=== PATIENT | female | born 1930 | race Caucasian/White ===

== ENCOUNTER → 2017-07-02 | Outpatient (CLI) | payer MEDICARE, BC ==
--- NOTE | 2017-07-02 15:05 | BD ---
EXAMINATION TYPE: MG DEXA axial skeleton. DATE OF EXAM: 07/02/2017 COMPARISON: DEXA bone scan report July 08, 2009 CLINICAL HISTORY: Postmenopausal female Height: 5 FT Weight: 153 FRAX RISK QUESTIONS: Alcohol (3 or more units per day): NO Family History (Parent hip fracture): NO Glucocorticoids (More than 3mos): NO (Ex: prednisone, prednisolone, methylprednisolone, dexamethasone, and hydrocortisone). History of Fracture in Adulthood: NO Secondary Osteoporosis: 1. Type 1 Diabetes: NO 2. Hyperthyroidism: NO 3. Menopause before 45: YES 4. Malnutrition: NO 5. Chronic liver disease: NO Rheumatoid Arthritis: NO-NO Current Tobacco Use: RISK FACTORS HISTORY OF: Active: YES Postmenopausal woman: TOTAL HYST AGE 42 MEDICATIONS: Additional Medications: SIMVASTATIN,ATENOLOL, LISINOPRIL, MESALAMINE, LEVOTHYROXINE ASPIRIN Additional History: HAS BEEN ON LEVOTHYROXINE FOR 10-12 YEARS EXAM MEASUREMENTS: Bone mineral densitometry was performed using the [employer] Interactive System. Bone mineral density as measured about the Lumbar spine is: ----- L1-L4(G/cm2): 0.938 T Score Values are as follows: ----- L2: -2.5 ----- L3: -1.1 ----- L4: -2.0 ----- L1-L4: -2.0 Bone mineral density has: Increased 1.7% since study of: 2008 Bone mineral density about the R hip (g/cm2): 0.667 Bone mineral density about the L hip (g/cm2): 0.716 T Score values are as follows: -----R Neck: -2.7 -----L Neck: -2.3 -----R Total: -2.3 -----L Total: -1.8 Bone mineral density has: Decreased -9.0 % since study of: 2008 IMPRESSION: Osteoporosis (T Score less than -2.5) as noted by T Score values at femoral neck level in the right h ip. There is increased fracture risk and therapy is usually indicated based on age. Re-Screen 1-2 yea rs. NOTE: T-SCORE=SD OF THE YOUNG ADULT MEAN.
[2017-07-02 15:09] LABS: Blood Urea Nitrogen 7 mg/dL (7-17); Non-African American GFR(MDRD) >60 (>60 ml/min/1.73 sqM)
--- NOTE | 2017-07-02 15:54 | CT ---
EXAMINATION TYPE: CT chest w con DATE OF EXAM: 07/02/2017 COMPARISON: NONE HISTORY: Patient complains of left side chest pain. CT DLP: 456 mGycm Automated exposure control for dose reduction was used. CONTRAST: CT scan of the chest is performed with IV Contrast, patient injected with 100 mL of Omnipaque 300. FINDINGS: LUNGS: The lungs are grossly clear, there is no concerning parenchymal mass or nodule identified. T here is no pleural effusion or pneumothorax seen. The tracheobronchial tree is patent. MEDIASTINUM: There is subcarinal and azygoesophageal adenopathy measuring 3.8 by 1.7 cm. No additiona l mediastinal or hilar adenopathy seen. There is thickening of the esophagus distending from the thor acic inlet to the level of the tracheal bifurcation. Consider direct visualization. No pericardial ef fusion is seen. Thoracic aorta is of normal caliber. The heart is enlarged. UPPER ABDOMEN: Mild hepatic steatosis. Cholecystectomy clips are in place. OTHER: No additional significant abnormality is seen. IMPRESSION: 1. Nonspecific Large mediastinal adenopathy as discussed. Consider transbronchial biopsy if felt clin ically indicated. 2. Thickening of the esophagus from the thoracic inlet through the tracheal bifurcation Above.
== END | disposition home or self-care (01) ==
LOC: RADBDWWP 14:03
PROVIDERS: ATTEND Internal Medicine
DX: M81.0 Age-related osteoporosis without current pathological fracture (principal); R59.0 Localized enlarged lymph nodes
CPT/HCPCS: 82565; 84520; 77080; 71260; 36415; Q9967

== ENCOUNTER 2018-11-24 11:41 | Emergency (ER) | payer MEDICARE, BC ==
[2018-11-24] MEDS ORDERED: NITROGLYCERIN OINT 1 INCH/GM PACKET TOPICAL STA (12:05)
[2018-11-24] MEDS ORDERED: KETOROLAC 60 MG/2 ML VIAL IVP STA (12:05)
[2018-11-24] MEDS ORDERED: SODIUM CHLORIDE 0.9% 500 ML 500 ML IV STA (12:05)
[2018-11-24] MEDS ORDERED: DIAZEPAM 5 MG/ML 2 ML INJ IVP STA (12:06)
--- NOTE | 2018-11-24 12:31 | ED ---
General Adult HPI - General Chief complaint: Chest Pain Stated complaint: Shoulder pain,SOB Time Seen by Provider: 11/24/18 11:45 Source: patient, RN notes reviewed Mode of arrival: ambulatory - History of Present Illness Initial comments: This is an 88-year-old female presents emergency Department complaining of posterior left shoulder pain. Patient states symptoms started yesterday have been constant ever since. Patient states the pain feels like a spasm in nature. Patient states the pain is worse with palpation patient states the pain is worse with movement of the left arm. Patient denies any anterior chest pain patient denies any difficulty breathing or shortness of breath. Patient denies any diaphoresis. Patient denies any nausea vomiting diarrhea per patient denies abdominal pain. Patient denies lightheadedness dizziness or near syncopal episode. Patient denies any numbness or weakness. Patient denies any swelling to the legs or calf tenderness. Patient states she does not have any diabetes but she has high blood pressure she thinks she has high cholesterol. - Related Data Home Medications Medication Instructions Recorded Confirmed Aspirin 325 mg PO DAILY PRN 11/24/18 11/24/18 Aspirin EC [Ecotrin Low Dose] 81 mg PO HS 11/24/18 11/24/18 Levothyroxine Sodium [Synthroid] 75 mcg PO DAILY 11/24/18 11/24/18 Lisinopril [Zestril] 20 mg PO BID 11/24/18 11/24/18 Memantine [Namenda] 5 mg PO DAILY 11/24/18 11/24/18 Mesalamine 800 mg PO TID 11/24/18 11/24/18 Metoprolol Tartrate [Lopressor] 75 mg PO BID 11/24/18 11/24/18 Simvastatin [Zocor] 20 mg PO HS 11/24/18 11/24/18 amLODIPine [Norvasc] 5 mg PO BID 11/24/18 11/24/18 Previous Rx's Medication Instructions Recorded Cyclobenzaprine [Flexeril] 5 mg PO TID #20 tab 11/24/18 Ibuprofen [Motrin] 600 mg PO Q6HR PRN #20 tab 11/24/18 Allergies Allergy/AdvReac Type Severity Reaction Status Date / Time cefdinir Allergy Unknown Verified 11/24/18 12:31 nitrofurantoin Allergy Unknown Verified 02/12/19 12:31 [From Macrodantin] pravastatin [From Pravachol] Allergy Unknown Verified 11/24/18 12:31 Sulfa (Sulfonamide Allergy Unknown Verified 11/24/18 12:31 Antibiotics) Review of Systems ROS Statement: Those systems with pertinent positive or pertinent negative responses have been documented in the HPI. ROS Other: All systems not noted in ROS Statement are negative. Past Medical History Past Medical History: Hyperlipidemia, Hypertension Additional Past Medical History / Comment(s): [place] History of Any Multi-Drug Resistant Organisms: None Reported Past Surgical History: No Surgical Hx Reported Past Psychological History: No Psychological Hx Reported Smoking Status: Former smoker Past Alcohol Use History: None Reported Past Drug Use History: None Reported General Exam - General Exam Comments Initial Comments: GENERAL: Patient is well-developed and well-nourished. Patient is nontoxic and well- hydrated and is in mild distress. ENT: Neck is soft and supple. No significant lymphadenopathy is noted. Oropharynx is clear. Moist mucous membranes. Neck has full range of motion without eliciting any pain. EYES: The sclera were anicteric and conjunctiva were pink and moist. Extraocular movements were intact and pupils were equal round and reactive to light. Eyelids were unremarkable. PULMONARY: Unlabored respirations. Good breath sounds bilaterally. No audible rales rhonchi or wheezing was noted. CARDIOVASCULAR: There is a regular rate and rhythm without any murmurs gallops or rubs. ABDOMEN: Soft and nontender with normal bowel sounds. No palpable organomegaly was noted. There is no palpable pulsatile mass. SKIN: Skin is clear with no lesions or rashes and otherwise unremarkable. NEUROLOGIC: Patient is alert and oriented x3. Cranial nerves II through XII are grossly intact. Motor and sensory are also intact. Normal speech, volume and content. Symmetrical smile. Cerebellar exam grossly intact. MUSCULOSKELETAL: Normal extremities with adequate strength and full range of motion. No lower extremity swelling or edema. No calf tenderness. LYMPHATICS: No significant lymphadenopathy is noted PSYCHIATRIC: Normal psychiatric evaluation Course Vital Signs 11/24/18 11/24/18 11/24/18 11:45 12:21 12:30 Temperature 97.7 F Pulse Rate 125 H 87 Pulse Rate [ 106 H [employer] ] Respiratory 26 H 17 Rate Blood Pressure 153/79 146/64 O2 Sat by Pulse 100 100 Oximetry 11/24/18 12:41 Temperature Pulse Rate 100 Pulse Rate [ [employer] ] Respiratory 18 Rate Blood Pressure 146/64 O2 Sat by Pulse 100 Oximetry Medical Decision Making - Medical Decision Making EKG shows sinus tachycardia at 102 bpm CA interval is 170 QRS is 66 QT interval 346 QTC is 450. Patient's EKG shows no ST segment elevation however there is some slight ST segment depression in leads V4 V5 and V6. Patient received Toradol and Valium and little morphine and was feeling considerably better. Patient states movement of the arm still exacerbated the pain. - Lab Data Result diagrams: 11/24/18 12:11/24/18 12:09 Lab Results 11/24/18 11/24/18 11/24/18 Range/Units 12: 12: 12: WBC 7.7 (3.8-10.6) k/uL RBC 4.60 (3.80-5.40) m/uL Hgb 14.7 (11.4-16.0) gm/dL Hct 43.0 (34.0-46.0) % MCV 93.5 (80.0-100.0) fL MCH 31.9 (25.0-35.0) pg MCHC 34.1 (31.0-37.0) g/dL RDW 12.8 (11.5-15.5) % Plt Count 339 (150-450) k/uL Neutrophils % 67 % Lymphocytes % 27 % Monocytes % 5 % Eosinophils % 0 % Basophils % 0 % Neutrophils # 5.2 (1.3-7.7) k/uL Lymphocytes # 2.0 (1.0-4.8) k/uL Monocytes # 0.3 (0-1.0) k/uL Eosinophils # 0.0 (0-0.7) k/uL Basophils # 0.0 (0-0.2) k/uL PT (9.0-12.0) sec INR (<1.2) APTT (22.0-30.0) sec Sodium 138 (137-145) mmol/L Potassium 4.6 (3.5-5.1) mmol/L Chloride 103 (98-107) mmol/L Carbon Dioxide 21 L (22-30) mmol/L Anion Gap 14 mmol/L BUN 16 (7-17) mg/dL Creatinine 0.80 (0.52-1.04) mg/dL Est GFR (CKD-EPI)AfAm 77 (>60 ml/min/1.73 sqM) Est GFR (CKD-EPI)NonAf 67 (>60 ml/min/1.73 sqM) Glucose 206 H (74-99) mg/dL Calcium 10.2 (8.4-10.2) mg/dL Magnesium 2.0 (1.6-2.3) mg/dL Total Bilirubin 0.5 (0.2-1.3) mg/dL AST 31 (14-36) U/L ALT 41 (9-52) U/L Alkaline Phosphatase 102 (38-126) U/L Total Creatine Kinase 110 (30-135) U/L CK-MB (CK-2) 0.4 (0.0-2.4) ng/mL CK-MB (CK-2) Rel Index 0.4 Troponin I <0.012 (0.000-0.034) ng/mL Total Protein 8.7 H (6.3-8.2) g/dL Albumin 4.9 (3.5-5.0) g/dL 11/24/18 Range/Units 12:09 WBC (3.8-10.6) k/uL RBC (3.80-5.40) m/uL Hgb (11.4-16.0) gm/dL Hct (34.0-46.0) % MCV (80.0-100.0) fL MCH (25.0-35.0) pg MCHC (31.0-37.0) g/dL RDW (11.5-15.5) % Plt Count (150-450) k/uL Neutrophils % % Lymphocytes % % Monocytes % % Eosinophils % % Basophils % % Neutrophils # (1.3-7.7) k/uL Lymphocytes # (1.0-4.8) k/uL Monocytes # (0-1.0) k/uL Eosinophils # (0-0.7) k/uL Basophils # (0-0.2) k/uL PT 10.4 (9.0-12.0) sec INR 1.0 (<1.2) APTT 26.8 (22.0-30.0) sec Sodium (137-145) mmol/L Potassium (3.5-5.1) mmol/L Chloride (98-107) mmol/L Carbon Dioxide (22-30) mmol/L Anion Gap mmol/L BUN (7-17) mg/dL Creatinine (0.52-1.04) mg/dL Est GFR (CKD-EPI)AfAm (>60 ml/min/1.73 sqM) Est GFR (CKD-EPI)NonAf (>60 ml/min/1.73 sqM) Glucose (74-99) mg/dL Calcium (8.4-10.2) mg/dL Magnesium (1.6-2.3) mg/dL Total Bilirubin (0.2-1.3) mg/dL AST (14-36) U/L ALT (9-52) U/L Alkaline Phosphatase (38-126) U/L Total Creatine Kinase (30-135) U/L CK-MB (CK-2) (0.0-2.4) ng/mL CK-MB (CK-2) Rel Index Troponin I (0.000-0.034) ng/mL Total Protein (6.3-8.2) g/dL Albumin (3.5-5.0) g/dL Disposition Clinical Impression: Musculoskeletal back pain Disposition: HOME SELF-CARE Condition: Good Instructions (If sedation given, give patient instructions): Chest Pain (ED), Muscle Spasm (ED) Prescriptions: Cyclobenzaprine [Flexeril] 5 mg PO TID #20 tab Ibuprofen [Motrin] 600 mg PO Q6HR PRN #20 tab PRN Reason: For pain Is patient prescribed a controlled substance at d/c from ED?: No Referrals: Grupo Owens MD [Primary Care Provider] - 1-2 days Time of Disposition: 14:39
[2018-11-24 12:42] VITALS: BP 146/64; PULSE 100; RESP 18
[2018-11-24 12:42] LABS: Basophils % (A) 0 %; Eosinophils % (A) 0 %; HGB 14.7 gm/dL (11.4-16.0); Lymphocytes % (A) 27 %; MCH 31.9 pg (25.0-35.0); MCHC 34.1 g/dL (31.0-37.0); MCV 93.5 fL (80.0-100.0); Mean Platelet Volume 6.4; Monocytes # (A) 0.3 k/uL (0-1.0); Monocytes % (A) 5 %; Neutrophils # (A) 5.2 k/uL (1.3-7.7); Neutrophils % (A) 67 %; Platelet Count 339 k/uL (150-450); RDW 12.8 % (11.5-15.5); WBC 7.7 k/uL (3.8-10.6)
[2018-11-24 12:47] LABS: Albumin 4.9 g/dL (3.5-5.0); Calcium 10.2 mg/dL (8.4-10.2); Potassium 4.6 mmol/L (3.5-5.1); Total Bilirubin 0.5 mg/dL (0.2-1.3); Total Protein 8.7 g/dL (6.3-8.2)
[2018-11-24 12:53] LABS: Partial Thromboplastin Time 26.8 sec (22.0-30.0); Prothrombin Time 10.4 sec (9.0-12.0)
[2018-11-24 13:00] LABS: Creatine Kinase 110 U/L (30-135)
[2018-11-24 13:14] LABS: Creatine Kinase MB 0.4 ng/mL (0.0-2.4); Troponin I <0.012 ng/mL (0.000-0.034)
--- NOTE | 2018-11-24 13:20 | XR ---
EXAMINATION TYPE: XR chest 2V DATE OF EXAM: 11/24/2018 COMPARISON: Chest x-ray October 30, 2018 HISTORY: Chest and left shoulder pain. TECHNIQUE: Frontal and lateral views of the chest are obtained. FINDINGS: There is chronic emphysematous change without suspicious focal air space opacity, pleural effusion, or pneumothorax seen. The cardiac silhouette size is mildly enlarged on current study with atherosclerotic change in the aortic knob. The osseous structures remaining somewhat demineralized . IMPRESSION: Chronic parenchymal change with new mild cardiomegaly but no suspicious new acute pulmona ry process.
[2018-11-24] MEDS ORDERED: MORPHINE SULFATE 4 MG/ML SYRINGE IVP STA (13:29)
[2018-11-24] MEDS ORDERED: CYCLOBENZAPRINE 5 MG TAB PO STA (14:37)
[2018-11-24 15:10] VITALS: TEMP 98
== END 2018-11-24 15:10 | disposition home or self-care (01) ==
LOC: EC 11:41
DX: M54.9 Dorsalgia, unspecified (principal); M25.512 Pain in left shoulder; E78.5 Hyperlipidemia, unspecified; I10 Essential (primary) hypertension; Z87.891 Personal history of nicotine dependence; Z79.82 Long term (current) use of aspirin; Z79.899 Other long term (current) drug therapy; Z88.1 Allergy status to other antibiotic agents; Z88.2 Allergy status to sulfonamides; Z88.8 Allergy status to other drugs, medicaments and biological substances
CPT/HCPCS: 36415; 93005; 80053; 82550; 82553; 83735; 84484; 85025; 85610; 85730; 71046; 99285; 96374; 96375 ×2; 96361; J2270; J3360; J1885